=== PATIENT | female | born 1980 | race Two or more races ===

== ENCOUNTER 2020-09-08 12:40 | Emergency (ER) | payer OTHER ==
[~2020-09-08] VITALS: Ht 162.6 cm; Wt 84.4 kg
[2020-09-08] MEDS ORDERED: PRENATABS FA T1 EACH (13:22)
== END 2020-09-08 18:16 | disposition home or self-care (01) ==
LOC: ER 12:40
DX: M79.652 Pain in left thigh (principal)

== ENCOUNTER 2020-09-24 05:14 | Inpatient (IN) | payer OTHER ==
[~2020-09-24] VITALS: Ht 162.6 cm; Wt 3.2 kg
[~2020-09-24 05:14] MED LIST: PRENATABS FA T1 EACH
== END 2020-09-27 17:01 | disposition home or self-care (01) | DRG 785 ==
LOC: LDR 05:14 → O/R 17:06 → OB/GYN 18:44
PROVIDERS: ADMIT Specialist; ATTEND Specialist
PROC: 0UB70ZZ Excision of Bilateral Fallopian Tubes, Open Approach (ICD-10-PCS; 2020-09-24)
PROC: 4A1HXFZ Monitoring of Products of Conception, Cardiac Rhythm, External Approach (ICD-10-PCS; 2020-09-24)
PROC: 10D00Z1 Extraction of Products of Conception, Low, Open Approach (ICD-10-PCS; principal; 2020-09-24 14:00)
DX: O34.211 Maternal care for low transverse scar from previous cesarean delivery (principal); O42.02 Full-term premature rupture of membranes, onset of labor within 24 hours of rupture; Z30.2 Encounter for sterilization; Z37.0 Single live birth; Z3A.38 38 weeks gestation of pregnancy